=== PATIENT | female | born 1960 | race African-American/Black ===

== ENCOUNTER 2016-12-10 17:18 | Emergency (ER) | payer SELFPAY ==
[~2016-12-10] VITALS: Ht 167.6 cm; Wt 70.5 kg
[~2016-12-10 17:18] MED LIST: ADDERALL XR30 MG PO; ADDERALL15 MG PO; AMOXICILLIN 50500 MG PO; HCTZ12.5TAB PO; MICROZIDE12.5 MG PO; MULTIPLE VITAMI1 CAP PO; NORCO 325 MG-51 TAB PO
[2016-12-10 17:24] VITALS: BP 125/94; TEMP 97.3
[2016-12-10] MEDS ORDERED: RITALIN10 MG PO (18:20)
[2016-12-10] MEDS ORDERED: PAXIL 10MG10 MG PO (18:20)
[2016-12-10] MEDS ORDERED: PERCOCET 325 MG1 TA2 PO (18:30)
[2016-12-10 19:34] VITALS: PULSE 57
== END 2016-12-10 19:36 | disposition home or self-care (01) ==
LOC: COL.ER 17:18
DX: S52.501A Unspecified fracture of the lower end of right radius, initial encounter for closed fracture (principal); W01.198A Fall on same level from slipping, tripping and stumbling with subsequent striking against other object, initial encounter; Y92.219 Unspecified school as the place of occurrence of the external cause; I10 Essential (primary) hypertension

== ENCOUNTER 2016-12-16 10:01 | Day surgery (SDC) | payer SELFPAY ==
[~2016-12-16] VITALS: Ht 170.2 cm; Wt 71.4 kg
[~2016-12-16 10:01] MED LIST changes: +PAXIL 10MG10 MG PO; +PERCOCET 325 MG1 TA2 PO; +RITALIN10 MG PO
[2016-12-16 10:41] VITALS: BP 135/75; PULSE 73; TEMP 98.7
[2016-12-16] MEDS ORDERED: NORCO 325 MG-7.1 TAB PO (10:51)
[2016-12-16] MEDS ORDERED: TURMERIC1 POW (10:52)
[2016-12-16] MEDS ORDERED: L-TYROSINE PO (10:53)
[2016-12-16 15:48] VITALS: BP 118/79; PULSE 65; TEMP 98.3
[2016-12-16 16:03] VITALS: BP 120/79; PULSE 65
[2016-12-16 16:18] VITALS: BP 116/72; PULSE 69
[2016-12-16 16:33] VITALS: BP 111/77; PULSE 72
[2016-12-16 17:03] VITALS: BP 105/73; PULSE 67
== END 2016-12-16 18:00 | disposition home or self-care (01) ==
LOC: SDCO 10:01
DX: S52.551A Other extraarticular fracture of lower end of right radius, initial encounter for closed fracture (principal); W18.30XA Fall on same level, unspecified, initial encounter
CPT/HCPCS: C1713; J2250; J2704; J2795; J3010; J7120

== ENCOUNTER → 2018-03-10 | Outpatient (CLI) | payer SELFPAY ==
[~2018-03-10] MED LIST changes: +L-TYROSINE PO; +NORCO 325 MG-7.1 TAB PO; +TURMERIC1 POW
== END ==
LOC: COL.VAS 10:30
DX: I08.1 Rheumatic disorders of both mitral and tricuspid valves (principal)

== ENCOUNTER → 2018-08-04 | Outpatient (CLI) | payer OTHER ==
[2018-08-04 16:37] LABS: BASO % 0.6 % (0.0-2.0); EOS # 0.1 (0.0-0.7); EOS % 2.8 % (0-4.0); GRAN # 2.8 (1.4-6.5); GRAN % 55.1 % (42.2-75.2); HEMATOCRIT 40.4 % (37.0-47.0); HEMOGLOBIN 12.5 g/dl (12.5-16.0); LYMPH # 1.5 (1.2-3.4); LYMPH % 30.5 % (20.0-51.0); MEAN CELL VOLUME 86 fl (80.0-100.0); MEAN CORPUSCULAR HEMOGLOBIN 27 pg (27.0-31.0); MEAN CORPUSCULAR HGB CONC 31 g/dl (33.0-37.0); MEAN PLATELET VOLUME 10.9 fl (7.4-10.4); MONO # 0.5 (0.1-0.6); MONO % 10.8 % (1.7-9.3); PLATELET COUNT 353 K/mm3 (130-400); RED BLOOD COUNT 4.68 M/mm3 (4.10-5.30); REDCELL DISTRIBUTION WIDTH-CV 13.2 % (11.5-14.5)
[2018-08-04 16:40] LABS: ALBUMIN 4.1 gm/dL (3.5-5.0); BILIRUBIN,TOTAL 0.3 mg/dL (0.0-1.0); CALCIUM 9.3 mg/dL (8.4-10.2); CREATININE, serum 0.91 mg/dL (0.52-1.25); POTASSIUM 3.6 mmol/L (3.4-5.0); TOTAL PROTEIN 7.4 gm/dL (6.4-8.2)
[2018-08-04 17:10] LABS: TSH w REFLEX 0.811 uIU/mL (0.465-4.680)
== END ==
LOC: ZCOL.LAB 16:23
PROVIDERS: Family Medicine
DX: F32.9 Major depressive disorder, single episode, unspecified (principal); F90.9 Attention-deficit hyperactivity disorder, unspecified type

== ENCOUNTER → 2018-09-29 | Outpatient (CLI) | payer SELFPAY ==
[2018-09-29 18:29] LABS: BASO % 0.8 % (0.0-2.0); EOS # 0.1 (0.0-0.7); EOS % 1.8 % (0-4.0); GRAN # 3.3 (1.4-6.5); GRAN % 65.8 % (42.2-75.2); HEMATOCRIT 40.8 % (37.0-47.0); HEMOGLOBIN 12.8 g/dl (12.5-16.0); LYMPH # 1.1 (1.2-3.4); LYMPH % 21.9 % (20.0-51.0); MEAN CELL VOLUME 86 fl (80.0-100.0); MEAN CORPUSCULAR HEMOGLOBIN 27 pg (27.0-31.0); MEAN CORPUSCULAR HGB CONC 31 g/dl (33.0-37.0); MEAN PLATELET VOLUME 10.2 fl (7.4-10.4); MONO # 0.5 (0.1-0.6); MONO % 9.5 % (1.7-9.3); PLATELET COUNT 294 K/mm3 (130-400); RED BLOOD COUNT 4.73 M/mm3 (4.10-5.30); REDCELL DISTRIBUTION WIDTH-CV 12.9 % (11.5-14.5)
[2018-09-29 18:48] LABS: ALBUMIN 4.2 gm/dL (3.5-5.0); BILIRUBIN,TOTAL 0.2 mg/dL (0.0-1.0); CREATININE, serum 0.97 mg/dL (0.52-1.25); POTASSIUM 4.3 mmol/L (3.4-5.0); TOTAL PROTEIN 7.5 gm/dL (6.4-8.2)
== END ==
LOC: COL.LAB 17:50
PROVIDERS: Family Medicine
DX: F32.9 Major depressive disorder, single episode, unspecified (principal); F90.9 Attention-deficit hyperactivity disorder, unspecified type; R74.0 Nonspecific elevation of levels of transaminase and lactic acid dehydrogenase [LDH]

== ENCOUNTER → 2018-11-01 | Outpatient (CLI) | payer OTHER | LOC: COL.RAD 12:00 | DX: R74.0 Nonspecific elevation of levels of transaminase and lactic acid dehydrogenase [LDH] (principal) ==

== ENCOUNTER → 2018-11-08 | Outpatient (CLI) | payer OTHER ==
[2018-11-08 18:21] LABS: TRICYCLIC ANTIDEPRESS URINE NEGATIVE
== END ==
LOC: ZCOL.LAB 16:47
PROVIDERS: Family Medicine
DX: F90.9 Attention-deficit hyperactivity disorder, unspecified type (principal)

== ENCOUNTER 2019-03-09 17:06 | Emergency (ER) | payer OTHER ==
[~2019-03-09] VITALS: Ht 167.6 cm; Wt 68.2 kg
[2019-03-09 17:23] VITALS: TEMP 98.7
[2019-03-09 17:54] LABS: BASO # 0.1 (0.0-0.2); BASO % 1.1 % (0.0-2.0); EOS # 0.3 (0.0-0.7); EOS % 5.6 % (0-4.0); GRAN # 1.9 (1.4-6.5); GRAN % 41.3 % (42.2-75.2); HEMATOCRIT 40.6 % (37.0-47.0); HEMOGLOBIN 12.5 g/dl (12.5-16.0); LYMPH # 1.8 (1.2-3.4); LYMPH % 40.9 % (20.0-51.0); MEAN CELL VOLUME 87 fl (80.0-100.0); MEAN CORPUSCULAR HEMOGLOBIN 27 pg (27.0-31.0); MEAN CORPUSCULAR HGB CONC 31 g/dl (33.0-37.0); MEAN PLATELET VOLUME 9.9 fl (7.4-10.4); MONO # 0.5 (0.1-0.6); MONO % 10.9 % (1.7-9.3); PLATELET COUNT 367 K/mm3 (130-400); RED BLOOD COUNT 4.66 M/mm3 (4.10-5.30)
[2019-03-09 18:05] LABS: ALANINE AMINOTRANSFERASE 23 U/L (9-52); ALKALINE PHOSPHATASE 134 U/L (50-136); ANION GAP 9 mmol/L (7-16); AST,SGOT 41 U/L (15-37); BILIRUBIN,TOTAL 0.4 mg/dL (0.0-1.0); BLOOD UREA NITROGEN 26 mg/dL (7-17); CALCIUM 9.2 mg/dL (8.4-10.2); CARBON DIOXIDE 27 mmol/L (22-30); CHLORIDE 107 mmol/L (98-107); CREATININE, serum 0.72 (0.52-1.25); GLUCOSE 104 mg/dL (74-106); SODIUM 143 mmol/L (137-145); TOTAL PROTEIN 7.4 gm/dL (6.4-8.2)
[2019-03-09 18:25] LABS: C-REACTIVE PROTEIN < 0.5 mg/dL (0.0-0.9)
[2019-03-09] MEDS ORDERED: SEPTRA DS 8001 TAB PO (19:38)
[2019-03-09 20:05] VITALS: BP 139/99; PULSE 70
== END 2019-03-09 20:27 | disposition home or self-care (01) ==
LOC: COL.ER 17:06
PROVIDERS: Emergency Medicine
DX: L03.317 Cellulitis of buttock (principal); I10 Essential (primary) hypertension
CPT/HCPCS: A4216; J0696; J1885; J7030; Q9967

== ENCOUNTER 2020-06-08 13:05 | Emergency (ER) | payer MEDICAID ==
[~2020-06-08] VITALS: Ht 167.6 cm; Wt 74.5 kg
[~2020-06-08 13:05] MED LIST changes: +CURCUMIN95% PO; -MULTIPLE VITAMI1 CAP PO; +MULTIPLE VITAMI1 TA5 PO; -PAXIL 10MG10 MG PO; +PAXIL 20MG20 MG PO; +SEPTRA DS 8001 TAB PO; -TURMERIC1 POW
[2020-06-08 13:14] VITALS: BP 145/93; PULSE 116; TEMP 98.8
[2020-06-08] MEDS ORDERED: ADDERALL20 MG PO (13:21)
[2020-06-08] MEDS ORDERED: VITAMIN B12 1541 TAB PO (13:22)
[2020-06-08] MEDS ORDERED: MAGNESIUM500 MG PO (13:23)
[2020-06-08] MEDS ORDERED: PAXIL 20MG20 MG PO ×2 (13:32)
== END 2020-06-08 13:57 | disposition home or self-care (01) ==
LOC: COL.ER 13:05
DX: F32.9 Major depressive disorder, single episode, unspecified (principal); F41.9 Anxiety disorder, unspecified; Z98.51 Tubal ligation status; Z98.890 Other specified postprocedural states

== ENCOUNTER → 2020-12-03 | Outpatient (CLI) | payer OTHER ==
[~2020-12-03] MED LIST changes: +ADDERALL XR20 MG PO; +ADDERALL20 MG PO; +CALCIUM-MAGNES1 EAC1 PO; +GLUCOSAMINE MSM1 TAB PO; +MAGNESIUM500 MG PO; +MASON NATURAL2000 IU PO; +NORVASC 5MG5 MG/TAB PO; +SAM E PO; +VITAMIN B12 1541 TAB PO; +VITAMINC1000TA PO
== END ==
LOC: COL.LAB 09:21 → COL.RAD 09:32
DX: Z02.71 Encounter for disability determination (principal)

== ENCOUNTER 2021-06-14 07:23 | Outpatient (CLI) | payer OTHER ==
[~2021-06-14] VITALS: Ht 167.6 cm; Wt 70.2 kg
[2021-06-14] VITALS (16 sets, daily range): BP systolic 115–148; BP diastolic 78–94; PULSE 55–72; TEMP 98.2
--- NOTE | 2021-06-14 08:16 | NUR ---
PT WAS TAKEN TO CT AND PLACED INTO POSITION. MONITORING EQUIPMENT PLACED
--- NOTE | 2021-06-14 08:25 | NUR ---
PT WAS GIVEN FENTANYL 50 MCG
--- NOTE | 2021-06-14 12:50 | NUR ---
Discharge instructions given to pt.pt verbalizes understanding.INT removed,catheter tip intact.Pt escorted out via wheelchair by this nurse.
== END 2021-06-14 17:06 ==
LOC: COL.RAD 07:23
DX: R91.8 Other nonspecific abnormal finding of lung field (principal)
CPT/HCPCS: J3010

== ENCOUNTER 2021-07-06 16:47 | Emergency (ER) | payer MEDICAID, OTHER ==
[~2021-07-06] VITALS: Ht 167.6 cm; Wt 72.7 kg
[2021-07-06 17:09] VITALS: TEMP 98.5
[2021-07-06 18:13] LABS: BASO # 0.1 (0.0-0.2); BASO % 1.1 % (0.0-2.0); EOS # 0.1 (0.0-0.7); GRAN # 2.4 (1.4-6.5); GRAN % 53.6 % (42.2-75.2); HEMATOCRIT 44.7 % (37.0-47.0); HEMOGLOBIN 14.2 g/dl (12.5-16.0); LYMPH # 1.4 (1.2-3.4); LYMPH % 31.1 % (20.0-51.0); MEAN CELL VOLUME 83 fl (80.0-100.0); MEAN CORPUSCULAR HEMOGLOBIN 26 pg (27.0-31.0); MEAN CORPUSCULAR HGB CONC 32 g/dl (33.0-37.0); MEAN PLATELET VOLUME 9.5 fl (7.4-10.4); MONO # 0.5 (0.1-0.6); PLATELET COUNT 359 K/mm3 (130-400); RED BLOOD COUNT 5.39 M/mm3 (4.10-5.30)
[2021-07-06 18:35] LABS: ALBUMIN 4.3 gm/dL (3.5-5.0); BILIRUBIN,TOTAL 0.3 mg/dL (0.2-1.2); C-REACTIVE PROTEIN 0.1 mg/dL (0.00-0.50); CALCIUM 10.1 mg/dL (8.4-10.2); CREATININE, serum 1.06 mg/dL (0.57-1.11); POTASSIUM 4.2 mmol/L (3.5-4.5); TOTAL PROTEIN 8.3 gm/dL (6.2-8.1)
[2021-07-06 18:41] LABS: TROPONIN-I 0.012 ng/mL (0.00-0.033)
[2021-07-06 20:12] VITALS: BP 133/88; PULSE 68
== END 2021-07-06 20:12 | disposition home or self-care (01) ==
LOC: COL.ER 16:47
PROVIDERS: Physician Assistant
DX: J98.59 Other diseases of mediastinum, not elsewhere classified (principal); M25.512 Pain in left shoulder; R91.8 Other nonspecific abnormal finding of lung field; Z79.899 Other long term (current) drug therapy
CPT/HCPCS: J1885; J2360; J7030

== ENCOUNTER 2021-10-07 12:39 | Emergency (ER) | payer MEDICAID ==
[~2021-10-07] VITALS: Ht 167.6 cm; Wt 71.8 kg
[~2021-10-07 12:39] MED LIST changes: -MAGIC MOUTH PO; -OMNICEF 300MG300 MG PO
[2021-10-07 13:24] VITALS: TEMP 98.4
[2021-10-07 14:42] LABS: COLLECTION METHOD CLEAN CATCH
[2021-10-07 15:07] LABS: MUCOUS Present (NOT PRESENT); PH 5 (5-8); SQUAMOUS EPITHELIAL 0-2 /hpf (0-10); URINE APPEARANCE Cloudy (CLEAR/HAZY); URINE BACTERIA Moderate /hpf (NONE SEEN); URINE BILIRUBIN Negative (NEGATIVE); URINE BLOOD Negative (NEGATIVE); URINE COLOR Yellow (YELLOW); URINE GLUCOSE Negative (NEGATIVE); URINE KETONE Negative (NEGATIVE); URINE LEUKOCYTE ESTERASE 3+ (NEGATIVE); URINE NITRATE Positive (NEGATIVE); URINE PROTEIN(semi-quant) Negative (NEGATIVE); URINE UROBILINOGEN Negative (NEGATIVE)
[2021-10-07] MEDS ORDERED: MAGIC MOUTH PO (15:21)
[2021-10-07] MEDS ORDERED: OMNICEF 300MG300 MG PO (15:21)
[2021-10-07] MEDS ORDERED: PERCOCET 325 MG1 TA2 PO (15:45)
[2021-10-07 16:40] VITALS: BP 120/61; PULSE 80
== END 2021-10-07 16:50 | disposition home or self-care (01) ==
LOC: COL.ER 12:39
PROVIDERS: Family Medicine
DX: N39.0 Urinary tract infection, site not specified (principal); G89.29 Other chronic pain; R07.89 Other chest pain; C37 Malignant neoplasm of thymus

== ENCOUNTER → 2021-10-07 | Outpatient (CLI) | payer MEDICAID ==
[~2021-10-07] MED LIST changes: +MAGIC MOUTH PO; +OMNICEF 300MG300 MG PO
== END ==
LOC: COL.PUL 11:00
DX: C37 Malignant neoplasm of thymus (principal)

== ENCOUNTER → 2022-04-25 | Outpatient (CLI) | payer MEDICAID ==
[~2022-04-25] MED LIST changes: +MAGIC MOUTH PO; +OMNICEF 300MG300 MG PO
== END ==
LOC: COL.RAD 10:53
DX: C37 Malignant neoplasm of thymus (principal); J90 Pleural effusion, not elsewhere classified; R91.1 Solitary pulmonary nodule; I82.290 Acute embolism and thrombosis of other thoracic veins
CPT/HCPCS: Q9967

== ENCOUNTER 2022-11-20 14:55 | Emergency (ER) | payer MEDICAID ==
[~2022-11-20] VITALS: Ht 170.2 cm; Wt 72.7 kg
[~2022-11-20 14:55] MED LIST changes: +CEFTIN 250250 MG/TAB PO
[2022-11-20 15:02] VITALS: TEMP 97.9
[2022-11-20 15:32] LABS: BASO % 0.9 % (0.0-2.0); EOS # 0.4 K/mm3 (0.0-0.7); EOS % 9.5 % (0.0-4.0); GRAN # 2.2 K/mm3 (1.4-6.5); GRAN % 50.3 % (42.2-75.2); HEMATOCRIT 40.9 % (37.0-47.0); LYMPH # 1.2 K/mm3 (1.2-3.4); LYMPH % 26.8 % (20.0-51.0); MEAN CELL VOLUME 85 fl (80.0-100.0); MEAN CORPUSCULAR HEMOGLOBIN 27 pg (27-31); MEAN CORPUSCULAR HGB CONC 32 g/dl (33.0-37.0); MEAN PLATELET VOLUME 9.2 fl (7.4-10.4); MONO # 0.5 K/mm3 (0.1-0.6); PLATELET COUNT 501 K/mm3 (130-400); RED BLOOD COUNT 4.83 M/mm3 (4.10-5.30); REDCELL DISTRIBUTION WIDTH-CV 13.9 % (11.5-14.5)
[2022-11-20 15:52] LABS: ALBUMIN 3.8 gm/dL (3.4-4.8); BILIRUBIN,TOTAL 0.2 mg/dL (0.2-1.2); C-REACTIVE PROTEIN 0.49 mg/dL (0.00-0.50); CALCIUM 9.8 mg/dL (8.4-10.2); CREATININE, serum 0.97 mg/dL (0.57-1.11); POTASSIUM 3.3 mmol/L (3.5-4.5); TOTAL PROTEIN 7.7 gm/dL (6.2-8.1)
[2022-11-20] MEDS ORDERED: PERCOCET 325 MG1 TA3 PO (17:10)
[2022-11-20 17:45] VITALS: BP 115/87; PULSE 77
== END 2022-11-20 17:50 | disposition home or self-care (01) ==
LOC: COL.ER 14:55
PROVIDERS: Emergency Medicine
DX: S22.42XA Multiple fractures of ribs, left side, initial encounter for closed fracture (principal); E87.5 Hyperkalemia; R73.9 Hyperglycemia, unspecified; R74.8 Abnormal levels of other serum enzymes; Z85.238 Personal history of other malignant neoplasm of thymus; Z92.3 Personal history of irradiation; Z79.1 Long term (current) use of non-steroidal anti-inflammatories (NSAID); Z88.5 Allergy status to narcotic agent; Z28.310 Unvaccinated for COVID-19; X50.1XXA Overexertion from prolonged static or awkward postures, initial encounter

== ENCOUNTER 2023-12-02 18:43 | Emergency (ER) | payer MEDICAID ==
[~2023-12-02] VITALS: Ht 167.6 cm; Wt 72.7 kg
[~2023-12-02 18:43] MED LIST changes: +PERCOCET 325 MG1 TA3 PO
[2023-12-02 18:57] VITALS: TEMP 98.4
[2023-12-02 21:11] LABS: BASO # 0.1 K/mm3 (0.0-0.2); BASO % 1.1 % (0.0-2.0); EOS # 0.3 K/mm3 (0.0-0.7); GRAN % 44.8 % (42.2-75.2); HEMATOCRIT 43.4 % (37.0-47.0); HEMOGLOBIN 13.6 g/dl (12.5-16.0); LYMPH # 1.6 K/mm3 (1.2-3.4); LYMPH % 37.6 % (20.0-51.0); MEAN CELL VOLUME 86 fl (80.0-100.0); MEAN CORPUSCULAR HEMOGLOBIN 27 pg (27-31); MEAN CORPUSCULAR HGB CONC 31 g/dl (33.0-37.0); MONO # 0.5 K/mm3 (0.1-0.6); MONO % 10.3 % (1.7-9.3); PLATELET COUNT 349 K/mm3 (130-400); RED BLOOD COUNT 5.03 M/mm3 (4.10-5.30); REDCELL DISTRIBUTION WIDTH-CV 14.2 % (11.5-14.5)
[2023-12-02 21:30] LABS: ALANINE AMINOTRANSFERASE 47 U/L (0-55); ALBUMIN 3.8 gm/dL (3.4-4.8); ALKALINE PHOSPHATASE 138 U/L (40-150); ANION GAP 12 mmol/L (7-16); AST,SGOT 37 U/L (5-34); BILIRUBIN,TOTAL 0.3 mg/dL (0.2-1.2); BLOOD UREA NITROGEN 17 mg/dL (10-20); CALCIUM 10.1 mg/dL (8.4-10.2); CARBON DIOXIDE 28 mmol/L (23-31); CHLORIDE 104 mmol/L (98-107); CREATININE, serum 0.85 mg/dL (0.57-1.11); GLUCOSE 114 mg/dL (70-99); POTASSIUM 3.2 mmol/L (3.5-4.5); SODIUM 144 mmol/L (136-145); TOTAL PROTEIN 7.3 gm/dL (6.2-8.1)
[2023-12-02 21:36] LABS: TROPONIN-I < 0.010 ng/mL (0.00-0.033)
[2023-12-02 22:16] VITALS: BP 145/100; PULSE 80
== END 2023-12-02 22:14 | disposition home or self-care (01) ==
LOC: COL.ER 18:43
PROVIDERS: Personal Emergency Response Attendant
DX: R20.2 Paresthesia of skin (principal); R20.0 Anesthesia of skin; J90 Pleural effusion, not elsewhere classified; R74.01 Elevation of levels of liver transaminase levels; G89.29 Other chronic pain; M54.9 Dorsalgia, unspecified; Z79.1 Long term (current) use of non-steroidal anti-inflammatories (NSAID); Z85.238 Personal history of other malignant neoplasm of thymus